=== PATIENT | female | born 1965 | race African-American/Black ===

== ENCOUNTER 2017-03-27 07:20 | Emergency (ER) | END 2017-03-27 09:43 | disposition home or self-care (01) ==

== ENCOUNTER 2017-09-20 10:03 | Emergency (ER) | END 2017-09-20 13:14 | disposition home or self-care (01) ==

== ENCOUNTER 2017-10-09 19:43 | Emergency (ER) | END 2017-10-09 21:41 | disposition left against medical advice (07) ==

== ENCOUNTER 2017-11-18 06:24 | Emergency (ER) | END 2017-11-18 09:33 | disposition home or self-care (01) ==

== ENCOUNTER 2017-12-21 06:47 | Emergency (ER) | END 2017-12-21 09:21 | disposition home or self-care (01) ==